=== PATIENT | female | born 1985 | race Two or more races ===

== ENCOUNTER 2020-01-29 15:11 | Inpatient (IN) | payer MEDICAID ==
[~2020-01-29] VITALS: Ht 171.4 cm; Wt 100.0 kg
[2020-01-29] MEDS ORDERED: OXYTOCIN 30U/ 0.9% NaCL 500ML 500 ML IV ONE (20:55)
[2020-01-29] MEDS ORDERED: D5%-LACTATED RINGERS 1,000 ML IV SCH (20:55)
[2020-01-29] MEDS ORDERED: OXYTOCIN 30U/ 0.9% NaCL 500ML 500 ML IV PRN (20:55)
[2020-01-29] MEDS ORDERED: TERBUTALINE 1 MG/ML, 1ML SQ PRN (21:00)
[2020-01-29] MEDS ORDERED: MISOPROSTOL 25 MCG TABLET VG PRN (21:00)
[2020-01-29] MEDS ORDERED: CALCIUM CARBONATE 500 MG TAB.CHEW PO PRN (21:00)
[2020-01-29] MEDS ORDERED: ONDANSETRON 2MG/ML, 2ML IVPush PRN (21:00)
[2020-01-29] MEDS ORDERED: TERBUTALINE 1 MG/ML, 1ML IVPush PRN (21:00)
[2020-01-29] MEDS ORDERED: FENTANYL PF 100 MCG/2ML IV PRN (21:00)
[2020-01-29] MEDS ORDERED: FENTANYL PF 100 MCG/2ML IVPush PRN (21:00)
[2020-01-29] MEDS ORDERED: PREN-59 PO (21:14)
[2020-01-29] MEDS ORDERED: MISOPROSTOL 25 MCG TABLET ONE (21:25)
[2020-01-29 21:43] LABS: BASOPHILS # (AUTO) 0.04 x10^3/uL (0-0.1); BASOPHILS % (AUTO) 1 % (0-1); EOSINOPHILS # (AUTO) 0.11 x10^3/uL (0-0.4); EOSINOPHILS % (AUTO) 1 % (1-7); LYMPHOCYTES # (AUTO) 2.51 x10^3/uL (1-3.4); LYMPHOCYTES % (AUTO) 29 % (22-44); MD NO; MEAN CORPUSCULAR HEMOGLOBIN 25.5 pg (27.0-34.8); MEAN CORPUSCULAR HGB CONC 32.3 g/dL (32.4-35.8); MEAN CORPUSCULAR VOLUME 78.9 fL (80-100); MEAN PLATELET VOLUME 8.1 fL (7.4-10.4); MONOCYTES # (AUTO) 0.78 x10^3/uL (0.2-0.8); MONOCYTES % (AUTO) 9 % (2-9); NEUTROPHILS # (AUTO) 5.32 x10^3/uL (1.8-6.8); NEUTROPHILS % (AUTO) 61 % (42-75); PLATELET COUNT 248 x10^3/uL (130-400); RED BLOOD COUNT 4.28 x10^6/uL (3.82-5.3); RED CELL DISTRIBUTION WIDTH 16.8 % (9.6-15.2)
[2020-01-30] MEDS ORDERED: NEWBORN KIT ONE (05:58)
[2020-01-30] MEDS ORDERED: OXYTOCIN 30U/ 0.9% NaCL 500ML 500 ML ONE (08:27)
[2020-01-30] MEDS: LACTATED RINGERS 1,000 ML IV SCH (08:57)
[2020-01-30] MEDS ORDERED: LIDOCAINE 1%, 20ML ONE (09:35)
[2020-01-30] MEDS ORDERED: MISOPROSTOL 200 MCG TABLET ONE (09:35)
[2020-01-30] MEDS ORDERED: ACETAMINOPHEN 325 MG TABLET ONE (09:55)
[2020-01-31] MEDS: LACTATED RINGERS 1,000 ML IV SCH ×4 (10:09→21:44)
[2020-01-31 11:15] VITALS: BP 122/81
[2020-01-31] MEDS ORDERED: CALCIUM CARBONATE 500 MG TAB.CHEW ONE (13:27)
[2020-01-31] MEDS ORDERED: FENTANYL/BUPIV./NS/PF 250 ML EPIDCONT SCH (19:28)
[2020-01-31] MEDS ORDERED: FENTANYL PF 100 MCG/2ML ONE (19:38)
[2020-01-31] MEDS ORDERED: ONDANSETRON 2MG/ML, 2ML ONE (19:48)
[2020-01-31] MEDS ORDERED: FENTANYL PF 500 MCG, BUPIVACAINE/PF 0.5%, 30ML 62.5 ML in SODIUM CHLORIDE 0.9% 177.5 ML EPIDCONT SCH (20:00)
[2020-01-31] MEDS ORDERED: BUPIVACAINE 0.25% ONE (20:05)
[2020-01-31 20:14] VITALS: BP 124/74
[2020-01-31] MEDS ORDERED: TERBUTALINE 1 MG/ML, 1ML ONE (20:49)
[2020-01-31] MEDS ORDERED: EPHEDRINE 50 MG/ML, 1ML IVPush PRN (21:00)
[2020-01-31] MEDS ORDERED: EPHEDRINE 50 MG/ML, 1ML ONE (21:14)
[2020-01-31] MEDS ORDERED: LACTATED RINGERS 1,000 ML INTUTE PRN (22:00)
[2020-01-31] MEDS ORDERED: LACTATED RINGERS 1,000 ML INTUTE SCH (22:00)
[2020-02-01] MEDS ORDERED: METHYLERGONOVINE 0.2 MG/ML IM PRN (00:30)
[2020-02-01] MEDS ORDERED: CARBOPROST TROMETHAMINE 250 MCG/ML, 1ML IM PRN (00:30)
[2020-02-01] MEDS ORDERED: ONDANSETRON 2MG/ML, 2ML IV PRN (00:30)
[2020-02-01] MEDS ORDERED: ACETAMINOPHEN 325 MG TABLET PO PRN (00:30)
[2020-02-01] MEDS ORDERED: SIMETHICONE 80 MG CHEW TAB PO PRN (00:30)
[2020-02-01] MEDS ORDERED: OXYcodone IR 5MG TABLET PO PRN (00:30)
[2020-02-01] MEDS ORDERED: MISOPROSTOL 200 MCG TABLET PR PRN (00:30)
[2020-02-01] MEDS ORDERED: OXYcodone/APAP 5/325MG TABLET PO PRN (00:30)
[2020-02-01] MEDS ORDERED: OXYTOCIN 30U/ 0.9% NaCL 500ML 500 ML ONE (00:31)
[2020-02-01] MEDS: OXYTOCIN 30U/ 0.9% NaCL 500ML 500 ML IV SCH ×3 (00:55→20:25)
[2020-02-01 02:15] VITALS: BP 114/65
[2020-02-01] MEDS: IBUPROFEN 600 MG TABLET PO PRN ×3 (03:40→18:33)
[2020-02-01 05:00] VITALS: BP 115/75
[2020-02-01 07:25] VITALS: BP 98/61
[2020-02-01 09:41] LABS: MEAN CORPUSCULAR HEMOGLOBIN 25.6 pg (27.0-34.8); MEAN CORPUSCULAR HGB CONC 32.2 g/dL (32.4-35.8); MEAN CORPUSCULAR VOLUME 79.7 fL (80-100); MEAN PLATELET VOLUME 8.4 fL (7.4-10.4); PLATELET COUNT 207 x10^3/uL (130-400); RED BLOOD COUNT 4.01 x10^6/uL (3.82-5.3); RED CELL DISTRIBUTION WIDTH 17.5 % (9.6-15.2)
[2020-02-01 10:03] LABS: BASOPHILS # (AUTO) 0.01 x10^3/uL (0-0.1); BASOPHILS % (AUTO) 0 % (0-1); EOSINOPHILS # (AUTO) 0.02 x10^3/uL (0-0.4); EOSINOPHILS % (AUTO) 0 % (1-7); LYMPHOCYTES # (AUTO) 2.11 x10^3/uL (1-3.4); LYMPHOCYTES % (AUTO) 15 % (22-44); MD SCAN; MONOCYTES # (AUTO) 0.98 x10^3/uL (0.2-0.8); MONOCYTES % (AUTO) 7 % (2-9); NEUTROPHILS # (AUTO) 11.31 x10^3/uL (1.8-6.8); NEUTROPHILS % (AUTO) 78 % (42-75)
[2020-02-01] MEDS: PRENATAL VIT/IRON/FA 1 EACH TABLET PO SCH (10:05)
[2020-02-01] MEDS: DOCUSATE 100 MG CAPSULE PO PRN (10:05)
[2020-02-01 12:10] VITALS: BP 102/71
[2020-02-01] MEDS ORDERED: FERROUS GLUCONATE 324 MG TABLET PO SCH (17:00)
[2020-02-01 19:50] VITALS: BP 110/74
[2020-02-02 00:15] VITALS: BP 108/72
[2020-02-02] MEDS: DOCUSATE 100 MG CAPSULE PO PRN (00:30)
[2020-02-02] MEDS: IBUPROFEN 600 MG TABLET PO PRN ×2 (00:30→06:15)
[2020-02-02] MEDS: OXYTOCIN 30U/ 0.9% NaCL 500ML 500 ML IV SCH (06:25)
[2020-02-02 08:00] VITALS: BP 90/54
[2020-02-02] MEDS ORDERED: IBUP-1222 PO (08:41)
[2020-02-02] MEDS ORDERED: DOCU-131 PO (08:41)
[2020-02-02] MEDS ORDERED: FERR324T5 PO (08:42)
[2020-02-02] MEDS: PRENATAL VIT/IRON/FA 1 EACH TABLET PO SCH (09:00)
== END 2020-02-02 10:02 | disposition home or self-care (01) | DRG 807 ==
LOC: EDIP 20:13 → LDIP 20:22 → 2NW 02-01 02:20
PROVIDERS: ADMIT Obstetrics & Gynecology Maternal & Fetal Medicine; ATTEND Obstetrics & Gynecology Maternal & Fetal Medicine
PROC: 10907ZC Drainage of Amniotic Fluid, Therapeutic from Products of Conception, Via Natural or Artificial Opening (ICD-10-PCS; 2020-01-30)
PROC: 0U7C7ZZ Dilation of Cervix, Via Natural or Artificial Opening (ICD-10-PCS; 2020-01-30)
PROC: 10H07YZ Insertion of Other Device into Products of Conception, Via Natural or Artificial Opening (ICD-10-PCS; 2020-01-31)
PROC: 10E0XZZ Delivery of Products of Conception, External Approach (ICD-10-PCS; principal; 2020-02-01)
PROC: 3E0R3BZ Introduction of Anesthetic Agent into Spinal Canal, Percutaneous Approach (ICD-10-PCS; 2020-02-01)
PROC: 00HU33Z Insertion of Infusion Device into Spinal Canal, Percutaneous Approach (ICD-10-PCS; 2020-02-01)
DX: O69.1XX0 Labor and delivery complicated by cord around neck, with compression, not applicable or unspecified (principal); Z37.0 Single live birth; O99.02 Anemia complicating childbirth; Z3A.39 39 weeks gestation of pregnancy; Z3A.40 40 weeks gestation of pregnancy; Z87.891 Personal history of nicotine dependence
CPT/HCPCS: 36415; J7121; S0020; 85025; 86592; 86850; 86900; G0378; J3010; J3490; J2590; J7050; J7120